=== PATIENT | male | born 1990 | race Asian ===

== ENCOUNTER 2018-01-07 08:51 | Emergency (ER) | payer OTHER ==
[~2018-01-07] VITALS: Ht 167.6 cm; Wt 78.0 kg
[2018-01-07 08:51] VITALS: BP 129/88
== END 2018-01-07 09:24 | disposition home or self-care (01) ==
LOC: ER 08:53
DX: H10.89 Other conjunctivitis (principal)
CPT/HCPCS: 99283; A4606; Z7610